=== PATIENT | female | born 1930 | race Caucasian/White ===

== ENCOUNTER 2018-09-07 02:55 | Inpatient (IN) | payer MEDICARE ==
[~2018-09-07] VITALS: Ht 152.4 cm; Wt 57.9 kg
[2018-09-07 03:40] LABS: BASOPHILS ABSOLUTE AUTO 0.07 K/mm3 (0.00-0.23); BASOPHILS PERCENT AUTO 1 % (0-2); EOSINOPHILS ABSOLUTE AUTO 0.59 K/mm3 (0.00-0.68); EOSINOPHILS PERCENT AUTO 4 % (0-6); Hematocrit 38.7 % (33.0-51.0); Hemoglobin 12.4 g/dL (11.5-16.0); IMMATURE GRAN ABSOLUTE AUTO 0.19 K/mm3 (0.00-0.10); IMMATURE GRAN PERCENT AUTO 1 % (0-1); LYMPHOCYTES ABSOLUTE AUTO 1.65 K/mm3 (0.84-5.20); LYMPHOCYTES PERCENT AUTO 12 % (21-46); MONOCYTES ABSOLUTE AUTO 1.35 K/mm3 (0.16-1.47); MONOCYTES PERCENT AUTO 10 % (4-13); Mean Corpuscular HGB 29.5 pg (26.0-34.0); Mean Corpuscular Volume 92 fL (80-100); Mean Platelet Volume 8.8 fL (9.1-12.4); NEUTROPHILS ABSOLUTE AUTO 9.62 K/mm3 (1.96-9.15); NEUTROPHILS PERCENT AUTO 72 % (41-73); Platelet Count 241 K/mm3 (150-400); RDW Coefficient Variation 14.5 % (11.7-14.2); Red Blood Cell Count 4.21 M/mm3 (3.80-5.20); White Blood Cell Count 13.47 K/mm3 (4.00-11.30)
[2018-09-07 03:55] LABS: International Normalized Ratio 1.02; Prothrombin Time Results 10.8 Sec (9.7-11.5)
[2018-09-07 03:59] LABS: Alanine Aminotransfer (ALT/SGP 20 U/L (12-78); Albumin, Blood 3.1 g/dL (3.4-5.0); Albumin/Globulin Ratio 0.9 (0.8-1.8); Alk Phos 66 U/L (50-136); Anion Gap 7 mmol/L (6-16); Aspartate Aminotrans (AST/SGOT 18 U/L (12-37); Bilirubin, Total 0.6 mg/dL (0.1-1.0); Blood Urea Nitrogen 17 mg/dL (8-24); Bun/Creatinine Ratio 24.8 (12.0-20.0); CO2, Blood 28 mmol/L (21-32); Calcium, Blood 7.8 mg/dL (8.5-10.1); Chloride, Blood 99 mmol/L (98-108); Creatinine, Blood 0.69 mg/dL (0.40-1.00); Globulin, Blood 3.6 g/dL (2.2-4.0); Glomerular Filtration Rate >60 (60-); Glucose, Blood 132 mg/dL (70-99); Potassium, Blood 3.4 mmol/L (3.5-5.5); Sodium, Blood 134 mmol/L (136-145); Total Protein, Blood 6.7 g/dL (6.4-8.2); Troponin I 0.099 ng/mL (0.000-0.040)
[2018-09-07 04:24] LABS: Source, Urine Catheter
[2018-09-07 04:26] LABS: Bilirubin, Urine Neg (Neg); Blood, Urine 4+ (Neg); Glucose Qualitative, Urine Neg (Neg); Ketones, Urine 1+ (Neg); Leukocyte Esterase, Urine 1+ (Neg); Nitrite, Urine Neg (Neg); Protein, Urine 2+ (Neg); Urobilinogen, Urine NORM (Normal)
[2018-09-07] MEDS ORDERED: Aspir-Low81 MG PO (04:27)
[2018-09-07] MEDS ORDERED: HYDCHL12.5 PO (04:27)
[2018-09-07] MEDS ORDERED: VIACTIV SOFT C1 EAC1 PO (04:28)
[2018-09-07] MEDS ORDERED: PRED10 PO (04:28)
[2018-09-07 04:32] LABS: Appearance, Urine Hazy (Clear); Color, Urine Pale Yellow (P-Yellow)
[2018-09-07 04:39] LABS: Bacteria Many /hpf; Squamous Epithelial Cells Few /hpf (Few)
--- NOTE | 2018-09-07 16:59 | NUR ---
SHIFT SUMMARY PT HAS DONE WELL SINCE ARRIVAL TO UNIT. DENIES PAIN, HAS BEEN SLEEPING WELL. ATTENDS IN PLACE. IVF RUNNING PER EMAR. TROPONING TRENDING DOWN-1.27. VSS.
[2018-09-08 05:05] LABS: BASOPHILS ABSOLUTE AUTO 0.01 K/mm3 (0.00-0.23); BASOPHILS PERCENT AUTO 0 % (0-2); EOSINOPHILS PERCENT AUTO 0 % (0-6); Hematocrit 34.7 % (33.0-51.0); Hemoglobin 11.1 g/dL (11.5-16.0); IMMATURE GRAN ABSOLUTE AUTO 0.11 K/mm3 (0.00-0.10); IMMATURE GRAN PERCENT AUTO 1 % (0-1); LYMPHOCYTES ABSOLUTE AUTO 0.88 K/mm3 (0.84-5.20); LYMPHOCYTES PERCENT AUTO 7 % (21-46); MONOCYTES ABSOLUTE AUTO 1.12 K/mm3 (0.16-1.47); MONOCYTES PERCENT AUTO 9 % (4-13); Mean Corpuscular HGB 28.8 pg (26.0-34.0); Mean Corpuscular Volume 90 fL (80-100); NEUTROPHILS ABSOLUTE AUTO 10.99 K/mm3 (1.96-9.15); NEUTROPHILS PERCENT AUTO 84 % (41-73); Platelet Count 227 K/mm3 (150-400); RDW Coefficient Variation 14.8 % (11.7-14.2); RDW Standard Deviation 48.7 fL (35.1-46.3); Red Blood Cell Count 3.85 M/mm3 (3.80-5.20); White Blood Cell Count 13.11 K/mm3 (4.00-11.30)
[2018-09-08 05:28] LABS: Alanine Aminotransfer (ALT/SGP 18 U/L (12-78); Albumin, Blood 2.6 g/dL (3.4-5.0); Albumin/Globulin Ratio 0.8 (0.8-1.8); Alk Phos 53 U/L (50-136); Anion Gap 6 mmol/L (6-16); Aspartate Aminotrans (AST/SGOT 37 U/L (12-37); Bilirubin, Total 0.5 mg/dL (0.1-1.0); Blood Urea Nitrogen 19 mg/dL (8-24); Bun/Creatinine Ratio 26.6 (12.0-20.0); CO2, Blood 25 mmol/L (21-32); Calcium, Blood 7.9 mg/dL (8.5-10.1); Chloride, Blood 106 mmol/L (98-108); Creatinine, Blood 0.71 mg/dL (0.40-1.00); Globulin, Blood 3.2 g/dL (2.2-4.0); Glomerular Filtration Rate >60 (60-); Glucose, Blood 110 mg/dL (70-99); Potassium, Blood 4.4 mmol/L (3.5-5.5); Sodium, Blood 137 mmol/L (136-145); Total Protein, Blood 5.8 g/dL (6.4-8.2)
--- NOTE | 2018-09-08 06:55 | NUR ---
RECVD REPORT FROM PREVIOUS SHIFT SHYAM SAENZ, SNEHA AWAKE IN BED, A/0 X 4, PLEASANT/COOPERATIVE, DENIES PAIN OR SOB. BED IN LOWEST POSITION, BEDRAILS UP, CALL LIGHT WITHIN REACH
--- NOTE | 2018-09-08 07:35 | NUR ---
SUMMARY NO ACUTE CHANEGS. PT REMAINS A&O X4. PT DENIES PAIN. LUNGS ARE COARSE W/WHEEZES. PT IS ON ROOM AIR, DENIES SOB/PAIN. NSR PER SECURITY COMPLIANCE SPECIALIST. ATTENDS CHANGED PRN. PT TO XRAY THIS AM. REPORT GIVEN TO DAY RN. CALL LIGHT IN REACH.
--- NOTE | 2018-09-08 18:11 | NUR ---
SHIFT SUMMARY: VSS, NO ACUTE CHANGES, PT UP TO CHAIR FOR LUNCH AND DINNER. PT DEVELOPED ECZEMA RASH WHICH SHE STATES IS AN ONGOING ISSUE FOR HER. RECEIVED ORDERS FROM PROVIDER FOR TOPICAL CREAM TO BE APPLIED TID. PT RECEIVED IV ABX X 2 PER JUL. PT REMAINED A/O X 4, PLEASANT/COOPERATIVE. INCONTINENCE VOIDS X 3 THIS SHIFT, ONE CONTINENT VOID. PT TOLERATED PO INTAKE, NO N/V. PT'S VISITED >3 HRS THIS SHIFT
[2018-09-09 01:44] LABS: Adenovirus Not Detected (NOT DETECT); Bordetella pertussis Not Detected (NOT DETECT); Chlamydophila pneumoniae Not Detected (NOT DETECT); Coronavirus 229E Not Detected (NOT DETECT); Coronavirus HKU1 Not Detected (NOT DETECT); Coronavirus NL63 Not Detected (NOT DETECT); Coronavirus OC43 Not Detected (NOT DETECT); Human Metapneumovirus Detected (NOT DETECT); Human Rhinovirus/Enterovirus Not Detected (NOT DETECT); Influenza A Not Detected (NOT DETECT); Influenza A/2009-H1 Not Detected (NOT DETECT); Influenza A/H1 Not Detected (NOT DETECT); Influenza A/H3 Not Detected (NOT DETECT); Influenza B Not Detected (NOT DETECT); Mycoplasma pneumoniae Not Detected (NOT DETECT); Parainfluenza Virus 1 Not Detected (NOT DETECT); Parainfluenza Virus 2 Not Detected (NOT DETECT); Parainfluenza Virus 3 Not Detected (NOT DETECT); Parainfluenza Virus 4 Not Detected (NOT DETECT); Respiratory Syncytial Virus Not Detected (NOT DETECT)
[2018-09-09 04:45] LABS: BASOPHILS ABSOLUTE AUTO 0.02 K/mm3 (0.00-0.23); BASOPHILS PERCENT AUTO 0 % (0-2); EOSINOPHILS ABSOLUTE AUTO 0.15 K/mm3 (0.00-0.68); EOSINOPHILS PERCENT AUTO 1 % (0-6); Hemoglobin 11.2 g/dL (11.5-16.0); IMMATURE GRAN PERCENT AUTO 1 % (0-1); LYMPHOCYTES ABSOLUTE AUTO 1.53 K/mm3 (0.84-5.20); LYMPHOCYTES PERCENT AUTO 11 % (21-46); MONOCYTES ABSOLUTE AUTO 1.26 K/mm3 (0.16-1.47); MONOCYTES PERCENT AUTO 9 % (4-13); Mean Corpuscular HGB 29.3 pg (26.0-34.0); Mean Corpuscular Volume 92 fL (80-100); NEUTROPHILS ABSOLUTE AUTO 10.95 K/mm3 (1.96-9.15); NEUTROPHILS PERCENT AUTO 78 % (41-73); Platelet Count 250 K/mm3 (150-400); RDW Coefficient Variation 14.9 % (11.7-14.2); RDW Standard Deviation 50.2 fL (35.1-46.3); Red Blood Cell Count 3.82 M/mm3 (3.80-5.20); White Blood Cell Count 14.01 K/mm3 (4.00-11.30)
[2018-09-09 04:59] LABS: Albumin, Blood 2.6 g/dL (3.4-5.0); Anion Gap 5 mmol/L (6-16); Blood Urea Nitrogen 14 mg/dL (8-24); Bun/Creatinine Ratio 19.9 (12.0-20.0); CO2, Blood 26 mmol/L (21-32); Calcium, Blood 8.1 mg/dL (8.5-10.1); Chloride, Blood 106 mmol/L (98-108); Glomerular Filtration Rate >60 (60-); Glucose, Blood 82 mg/dL (70-99); Phosphorus, Blood 3.1 mg/dL (2.5-4.9); Potassium, Blood 4.1 mmol/L (3.5-5.5); Sodium, Blood 137 mmol/L (136-145)
--- NOTE | 2018-09-09 07:59 | NUR ---
SUMMARY NO ACUTE CHANGES NOTED. PT WAS GIVEN 10 MG HYDRALIZINE THIS AM DUE TO HTN. BP DECREASED. PT ASYMPTOMATIC. PT IS A STAND BY ASSIST TO THE BATHROOM. CALL LIGHT LIGHT IN REACH, PT CALLS APPROPRIATLY
--- NOTE | 2018-09-09 18:47 | NUR ---
SHIFT SUMMARY PT HAS DONE WELL TODAY DESPITE FEELING FATIGUED. WHEEZY AND COURSE T/O SHIFT BUT IMPROVING FAR MOBILIZATION.
--- NOTE | 2018-09-10 04:03 | NUR ---
SUMMARY PT REPORTS BREATHING EASIER SINCE ADMIT. STILL WEAK, BUT IS IMPULSIVE FEE;ING IMPROVED AND NEEDS REMINDING TO CALL FOR ASSIST OOB. BED ALARM LEFT ON FOR SAFETY. WALKS WITH SBA AND WALKER.
[2018-09-10 05:17] LABS: BASOPHILS ABSOLUTE AUTO 0.03 K/mm3 (0.00-0.23); BASOPHILS PERCENT AUTO 0 % (0-2); EOSINOPHILS ABSOLUTE AUTO 0.08 K/mm3 (0.00-0.68); EOSINOPHILS PERCENT AUTO 1 % (0-6); Hematocrit 33.1 % (33.0-51.0); Hemoglobin 10.6 g/dL (11.5-16.0); IMMATURE GRAN ABSOLUTE AUTO 0.07 K/mm3 (0.00-0.10); IMMATURE GRAN PERCENT AUTO 1 % (0-1); LYMPHOCYTES PERCENT AUTO 18 % (21-46); MONOCYTES ABSOLUTE AUTO 0.78 K/mm3 (0.16-1.47); MONOCYTES PERCENT AUTO 10 % (4-13); Mean Corpuscular HGB 29.4 pg (26.0-34.0); Mean Corpuscular Volume 92 fL (80-100); Mean Platelet Volume 9.1 fL (9.1-12.4); NEUTROPHILS ABSOLUTE AUTO 5.73 K/mm3 (1.96-9.15); NEUTROPHILS PERCENT AUTO 70 % (41-73); Platelet Count 240 K/mm3 (150-400); RDW Coefficient Variation 14.9 % (11.7-14.2); RDW Standard Deviation 50.2 fL (35.1-46.3); White Blood Cell Count 8.19 K/mm3 (4.00-11.30)
[2018-09-10 05:55] LABS: Alanine Aminotransfer (ALT/SGP 21 U/L (12-78); Albumin, Blood 2.4 g/dL (3.4-5.0); Albumin/Globulin Ratio 0.7 (0.8-1.8); Alk Phos 47 U/L (50-136); Anion Gap 8 mmol/L (6-16); Aspartate Aminotrans (AST/SGOT 27 U/L (12-37); Bilirubin, Total 0.6 mg/dL (0.1-1.0); Blood Urea Nitrogen 13 mg/dL (8-24); Bun/Creatinine Ratio 19.1 (12.0-20.0); CO2, Blood 27 mmol/L (21-32); Calcium, Blood 8.1 mg/dL (8.5-10.1); Chloride, Blood 104 mmol/L (98-108); Creatinine, Blood 0.68 mg/dL (0.40-1.00); Globulin, Blood 3.4 g/dL (2.2-4.0); Glomerular Filtration Rate >60 (60-); Glucose, Blood 106 mg/dL (70-99); Potassium, Blood 3.7 mmol/L (3.5-5.5); Sodium, Blood 139 mmol/L (136-145); Total Protein, Blood 5.8 g/dL (6.4-8.2); Troponin I 0.304 ng/mL (0.000-0.040)
--- NOTE | 2018-09-10 12:24 | NUR ---
REPORT TO Myriam DONAHUE AT THIS TIME.
--- NOTE | 2018-09-10 12:44 | NUR ---
ASSUMED CARE OF PATIENT AT THIS TIME. SPOUSE VISITING AT BEDSIDE, DENIES NEEDS.
--- NOTE | 2018-09-10 17:37 | NUR ---
PT HAS BEEN STABLE SINCE THIS RN ASSUMED CARE. PT SBA OOB TO BATHROOM AND CHAIR. SITTING IN CHAIR FOR ALL MEALS. WALKER USED NEEDED. PT PETERSON DIET. VOIDING WELL. NO BM THIS SHIFT, PT NEEDS GI PANEL COLLECTED WHEN ABLE TO GET SPECIMEN. PT DENIES SOB, SATS STABLE ON RA. PRODUCTIVE COUGH WITH SMALL AMT YELLOW SPUTUM. HYDROCORTISONE CREAM NEEDED FOR RASH/ITCHING. PLAN TO DC HOME WITH SPOUSE IN 1-2 DAYS. PT USES CALL LIGHT APPROPRIATELY NEEDED.
--- NOTE | 2018-09-11 06:53 | NUR ---
SUMMARY PT RESP STATUS IMPROVING.MARCELINO BACK FOR URINE CX. PT AMBULATION IS GETTING STRONGER.PT HOPING TO GO HOME IN NEXT DAY OR 2.
--- NOTE | 2018-09-11 07:55 | NUR ---
ELEVATED BP PT'S BP 191/90. METOPROLOL DOSE GIVEN EARLY. PT IS ASYMPTOMATIC AT THIS TIME. WILL RE-ASSESS BP IN APPROXIMATELY 1 HOUR.
[2018-09-11 10:47] LABS: Adenovirus F 40/41 Not Detected (NOT DETECT); Campylobacter Sp Not Detected (NOT DETECT); Cryptosporidium Not Detected (NOT DETECT); Cyclospora Cayetanensis Not Detected (NOT DETECT); E. Coli O157 Not Detected (NOT DETECT); Entamoeba Histolytica Not Detected (NOT DETECT); Enteroaggregative E. coli-EAEC Not Detected (NOT DETECT); Enteropathogenic E. coli-EPEC Not Detected (NOT DETECT); Enterotoxigenic E. coli-ETEC Not Detected (NOT DETECT); Giardia Lamblia Not Detected (NOT DETECT); Plesiomonas Shigelloides Not Detected (NOT DETECT); Salmonella Sp Not Detected (NOT DETECT); Shiga Toxin-prod E. coli-STEC Not Detected (NOT DETECT); Shigella/Enteroin E. coli-EIEC Not Detected (NOT DETECT); Vibrio Cholerae Not Detected (NOT DETECT); Vibrio Sp Not Detected (NOT DETECT); Yersinia Enterocolitica Not Detected (NOT DETECT)
[2018-09-11 10:48] LABS: Astrovirus Not Detected (NOT DETECT); Norovirus GI/GII Not Detected (NOT DETECT); Rotavirus A Not Detected (NOT DETECT); Sapovirus Not Detected (NOT DETECT)
--- NOTE | 2018-09-11 18:30 | NUR ---
SHIFT SUMMARY PT IS A 1 ASSIST WHEN OOB. PLAN FOR POSSIBLE DISCHARGE HOME TOMORROW. WILL MONITOR UNTIL REPORT TO ONCOMING RN.
--- NOTE | 2018-09-12 04:48 | NUR ---
SHIFT SUMMARY PT A&O X4 T/O SHIFT. LS COARSE BILAT, RA, PT DENIES SOB. UP TO TOILET SEVERAL TIMES; UP IN MELLO X1 WITH FWW AND SBA, TOLERATED WELL. NO ACUTE CHANGES. CALL LIGHT IN REACH; PT DEMONSTRATES USE. WCTM UNTIL REPORT TO DAY SHIFT RN.
[2018-09-12 04:53] LABS: BASOPHILS ABSOLUTE AUTO 0.05 K/mm3 (0.00-0.23); BASOPHILS PERCENT AUTO 1 % (0-2); EOSINOPHILS ABSOLUTE AUTO 0.25 K/mm3 (0.00-0.68); EOSINOPHILS PERCENT AUTO 3 % (0-6); Hematocrit 33.6 % (33.0-51.0); Hemoglobin 10.5 g/dL (11.5-16.0); IMMATURE GRAN ABSOLUTE AUTO 0.26 K/mm3 (0.00-0.10); IMMATURE GRAN PERCENT AUTO 3 % (0-1); LYMPHOCYTES ABSOLUTE AUTO 1.89 K/mm3 (0.84-5.20); LYMPHOCYTES PERCENT AUTO 21 % (21-46); MONOCYTES ABSOLUTE AUTO 0.82 K/mm3 (0.16-1.47); MONOCYTES PERCENT AUTO 9 % (4-13); Mean Corpuscular HGB 29.2 pg (26.0-34.0); Mean Corpuscular HGB Conc 31.3 g/dL (31.5-36.5); Mean Corpuscular Volume 93 fL (80-100); NEUTROPHILS ABSOLUTE AUTO 5.71 K/mm3 (1.96-9.15); NEUTROPHILS PERCENT AUTO 64 % (41-73); Platelet Count 268 K/mm3 (150-400); RDW Coefficient Variation 14.7 % (11.7-14.2); RDW Standard Deviation 50.8 fL (35.1-46.3); White Blood Cell Count 8.98 K/mm3 (4.00-11.30)
[2018-09-12 05:17] LABS: Albumin, Blood 2.6 g/dL (3.4-5.0); Anion Gap 6 mmol/L (6-16); Blood Urea Nitrogen 19 mg/dL (8-24); Bun/Creatinine Ratio 31.1 (12.0-20.0); CO2, Blood 28 mmol/L (21-32); Calcium, Blood 8.8 mg/dL (8.5-10.1); Chloride, Blood 104 mmol/L (98-108); Creatinine, Blood 0.61 mg/dL (0.40-1.00); Glomerular Filtration Rate >60 (60-); Glucose, Blood 102 mg/dL (70-99); Phosphorus, Blood 4.1 mg/dL (2.5-4.9); Potassium, Blood 4.3 mmol/L (3.5-5.5); Sodium, Blood 138 mmol/L (136-145)
[2018-09-12] MEDS ORDERED: AZIT250 PO (10:51)
[2018-09-12] MEDS ORDERED: ATOR40TA PO (10:51)
[2018-09-12] MEDS ORDERED: CEFP200 PO (10:52)
[2018-09-12] MEDS ORDERED: LOSA50 PO (10:52)
[2018-09-12] MEDS ORDERED: METO25ER PO (10:53)
--- NOTE | 2018-09-12 11:20 | NUR ---
PROVIDED PT WITH DISCHARGE INSTRUCTIONS, ANSWERED ALL QUESTIONS, FAXED PRESCRIPTIONS TO [facility] IN [place], DISCONTINUED IV WNL, AWAITING ARRIVAL OF PT'S FOR A RIDE HOME. PT UP IN ROOM GATHERING HER BELONGINGS.
--- NOTE | 2018-09-12 13:30 | NUR ---
PT'S ARRIVED, CHARGE NURSE/HUGO ASSISTED PT OUT TO VEHICLE VIA WHEELCHAIR.
== END 2018-09-12 13:19 | disposition home or self-care (01) | DRG 871 ==
LOC: ER 02:55 → ERHOLD 05:58 → SURS 12:15
PROVIDERS: Emergency Medicine; Family Medicine; Internal Medicine Gastroenterology; ADMIT Family Medicine
DX: A41.89 Other specified sepsis (principal); J12.3 Human metapneumovirus pneumonia; I21.A1 Myocardial infarction type 2; E87.1 Hypo-osmolality and hyponatremia; R65.20 Severe sepsis without septic shock; Z66 Do not resuscitate; E87.6 Hypokalemia; I10 Essential (primary) hypertension; E86.1 Hypovolemia; J44.9 Chronic obstructive pulmonary disease, unspecified
CPT/HCPCS: 36415; 71046; 80053; 80069; 81001; 83605; 83880; 84145; 84484; 85025; 85610; 85730; 87040; 87070; 87077; 87086; 87186; 87205; 87486; 87507; 87581; 87633; 87798; 93005; 93010; 93306; 94640; 94760; 96365; 96375; 99285-25; J0360; J0456; J0696; J1650; J2405; J2930; J3480; J7050

== ENCOUNTER 2018-11-08 10:11 | Emergency (ER) | payer MEDICARE ==
[~2018-11-08] VITALS: Ht 147.3 cm; Wt 57.1 kg
[~2018-11-08 10:11] MED LIST: ATOR40TA PO; AZIT250 PO; Aspir-Low81 MG PO; CEFP200 PO; HYDCHL12.5 PO; LOSA50 PO; METO25ER PO; PRED10 PO; VIACTIV SOFT C1 EAC1 PO
[2018-11-08] MEDS ORDERED: AMLO5 PO (10:31)
[2018-11-08] MEDS ORDERED: HYDR1TAB94 PO (12:48)
== END 2018-11-08 13:17 | disposition home or self-care (01) ==
LOC: ER 10:11
DX: S22.089A Unspecified fracture of T11-T12 vertebra, initial encounter for closed fracture (principal); M54.5 Low back pain; G89.29 Other chronic pain; W19.XXXA Unspecified fall, initial encounter; Z88.0 Allergy status to penicillin; Z88.8 Allergy status to other drugs, medicaments and biological substances; Z88.5 Allergy status to narcotic agent; Z88.1 Allergy status to other antibiotic agents; Z79.82 Long term (current) use of aspirin; Z79.899 Other long term (current) drug therapy; I10 Essential (primary) hypertension; I25.2 Old myocardial infarction
CPT/HCPCS: 72070; 72100; 72125; 99284-25; A9270-GY

== ENCOUNTER 2018-11-26 16:41 | Observation (INO) | payer MEDICARE ==
[~2018-11-26] VITALS: Ht 162.6 cm; Wt 57.1 kg
[~2018-11-26 16:41] MED LIST changes: +AMLO5 PO; +HYDR1TAB94 PO
[2018-11-26 18:29] LABS: Source, Urine Clean Catch
[2018-11-26 18:32] LABS: Bilirubin, Urine Neg (Neg); Blood, Urine 3+ (Neg); Glucose Qualitative, Urine Neg (Neg); Ketones, Urine 2+ (Neg); Leukocyte Esterase, Urine 1+ (Neg); Nitrite, Urine Neg (Neg); Protein, Urine Neg (Neg); Specific Gravity, Urine 1.015 (1.003-1.022); Urobilinogen, Urine NORM (Normal)
[2018-11-26 18:36] LABS: BASOPHILS ABSOLUTE AUTO 0.07 K/mm3 (0.00-0.23); BASOPHILS PERCENT AUTO 1 % (0-2); EOSINOPHILS ABSOLUTE AUTO 0.24 K/mm3 (0.00-0.68); EOSINOPHILS PERCENT AUTO 3 % (0-6); Hematocrit 40.3 % (33.0-51.0); Hemoglobin 13.3 g/dL (11.5-16.0); IMMATURE GRAN ABSOLUTE AUTO 0.04 K/mm3 (0.00-0.10); IMMATURE GRAN PERCENT AUTO 0 % (0-1); LYMPHOCYTES ABSOLUTE AUTO 2.41 K/mm3 (0.84-5.20); LYMPHOCYTES PERCENT AUTO 26 % (21-46); MONOCYTES PERCENT AUTO 10 % (4-13); Mean Corpuscular HGB 30.7 pg (26.0-34.0); Mean Corpuscular Volume 93 fL (80-100); NEUTROPHILS ABSOLUTE AUTO 5.71 K/mm3 (1.96-9.15); NEUTROPHILS PERCENT AUTO 61 % (41-73); RDW Standard Deviation 52.1 fL (35.1-46.3); Red Blood Cell Count 4.33 M/mm3 (3.80-5.20); White Blood Cell Count 9.37 K/mm3 (4.00-11.30)
[2018-11-26 18:55] LABS: Appearance, Urine Clear (Clear); Color, Urine Yellow (P-Yellow)
[2018-11-26 18:57] LABS: Bacteria Few /hpf; Calcium Oxalate Crystals Few /hpf; Squamous Epithelial Cells Few /hpf (Few)
[2018-11-26 18:58] LABS: Mean Platelet Volume 8.8 fL (9.1-12.4); Platelet Count 310 K/mm3 (150-400)
[2018-11-26 19:05] LABS: Alanine Aminotransfer (ALT/SGP 14 U/L (12-78); Albumin, Blood 3.6 g/dL (3.4-5.0); Albumin/Globulin Ratio 0.8 (0.8-1.8); Alk Phos 137 U/L (50-136); Anion Gap 8 mmol/L (6-16); Aspartate Aminotrans (AST/SGOT 19 U/L (12-37); Bilirubin, Total 0.8 mg/dL (0.1-1.0); Blood Urea Nitrogen 21 mg/dL (8-24); Bun/Creatinine Ratio 32.8 (12.0-20.0); CO2, Blood 25 mmol/L (21-32); Calcium, Blood 9.1 mg/dL (8.5-10.1); Chloride, Blood 105 mmol/L (98-108); Creatinine, Blood 0.64 mg/dL (0.40-1.00); Globulin, Blood 4.3 g/dL (2.2-4.0); Glomerular Filtration Rate >60 (60-); Glucose, Blood 96 mg/dL (70-99); Potassium, Blood 3.8 mmol/L (3.5-5.5); Sodium, Blood 138 mmol/L (136-145); Total Protein, Blood 7.9 g/dL (6.4-8.2)
[2018-11-27 04:52] LABS: Hematocrit 36.6 % (33.0-51.0); Hemoglobin 11.8 g/dL (11.5-16.0); Mean Corpuscular HGB 29.4 pg (26.0-34.0); Mean Corpuscular HGB Conc 32.2 g/dL (31.5-36.5); Mean Corpuscular Volume 91 fL (80-100); Mean Platelet Volume 8.5 fL (9.1-12.4); Platelet Count 301 K/mm3 (150-400); RDW Coefficient Variation 15.1 % (11.7-14.2); RDW Standard Deviation 50.8 fL (35.1-46.3); Red Blood Cell Count 4.01 M/mm3 (3.80-5.20); White Blood Cell Count 8.41 K/mm3 (4.00-11.30)
[2018-11-27 05:12] LABS: Albumin/Globulin Ratio 0.8 (0.8-1.8); Bilirubin, Total 0.6 mg/dL (0.1-1.0); Bun/Creatinine Ratio 27.6 (12.0-20.0); Calcium, Blood 8.7 mg/dL (8.5-10.1); Creatinine, Blood 0.98 mg/dL (0.40-1.00); Globulin, Blood 3.7 g/dL (2.2-4.0); Potassium, Blood 4.2 mmol/L (3.5-5.5); Total Protein, Blood 6.7 g/dL (6.4-8.2)
--- NOTE | 2018-11-27 06:26 | NUR ---
PT NEW ADMIT THIS SHIFT FOR BACK PAIN R/T T-12 COMPRESSION FX. PT VSS SINCE ARRIVING TO FLOOR. PT REP PAIN LESS SEVERE SINCE ADMIT, MED FOR PAIN X1 AND REPOSITIONED FOR COMFORT W/REP RELIEF. PT USING CALL LIGHT FOR ASSISTANCE. AWAITING PT/OT EVAL. WILL CONT TO MONITOR UNTIL REP GIVEN TO ONCOMING RN.
--- NOTE | 2018-11-27 07:55 | NUR ---
pt awake reports pain 7/10 to her back stated she was unable to move at home and pain was unbearable stated the meds also made her sicek to her stomach but the toradol has not we also will ask dr for tramadol
--- NOTE | 2018-11-27 10:32 | NUR ---
dr winter by to see pt po tramadol started will trial vs po dilaudid if effective will use instead
--- NOTE | 2018-11-27 13:00 | NUR ---
pt done eating lunch her iv was leaking removed and placed a new iv
--- NOTE | 2018-11-27 14:25 | NUR ---
po dilaudid given will trial when pt was working with ot she had some nausea zofran given this will also premedicate for if she has nausea with the pain meds
--- NOTE | 2018-11-28 08:18 | NUR ---
SUMMARY: NO ACUTE CHANGES THIS SHIFT. PAIN WELL CONTROLLED WITH IV TORDAL AND PO TRAMADOL X1 THIS SHIFT; NO NAUSEA.
--- NOTE | 2018-11-28 18:23 | NUR ---
SUMMARY PATIENT REPORTS CURRENT BACK AND PELVIS PAIN IS 4-5/10. PATIENT DECLINES PAIN MEDS AT THIS TIME. VISITING WITH HER AT THIS TIME. PATIENT JASE QUIROGA ASSIST WITH WALKER. EPISODE OF NAUSEA WHICH RESOLVED AFTER ZOFRAN
--- NOTE | 2018-11-29 08:08 | NUR ---
PT HAD NO ACUTE CHANGES T/O NIGHT; VSS. PAIN MGD W/TRAMADOL AND IBUPROFEN W/REP RELIEF. MEDS GIVEN W/CRACKERS, PT HAD NO C/O N/V. PT AMB W/FWW+SBA, REP PAIN INCREASES TO LLE W/MVMT. PT USING CALL LIGHT FOR ASSISTANCE, REP GIVEN TO DAY RN.
--- NOTE | 2018-11-29 18:53 | NUR ---
SUMMARY: NO ACUTE CHANGE TODAY. PT IS A/O, VSS. OBSERVATION PT AT THIS TIME. PT MEDICATED FOR BACK PAIN X1 WITH TRAMADOL. DANGLED ON BEDSIDE FOR EACH MEAL TODAY, REFUSED UP TO CHAIR. CSM INTACT. HAS DENIED N/V. NO SAFETY CONCERNS AT THIS TIME. WILL CTM AND REPORT TO DAXA HOWE.
--- NOTE | 2018-11-30 05:23 | NUR ---
PT HAD NO ACUTE CHANGES T/O NIGHT; VSS. PT MED FOR PAIN X2 W/REP RELIEF. PT REP PAIN IN BACK AND DOWN LLE. PT AMB W/FWW+SBA, PETERSON WELL. PT USING CALL LIGHT FOR ASSISTANCE, WILL CONT TO MONITOR UNTIL REP GIVEN TO ONCOMING RN.
[2018-11-30] MEDS ORDERED: LOSA25 PO (09:20)
[2018-11-30] MEDS ORDERED: IBUP600 PO (09:23)
[2018-11-30] MEDS ORDERED: METO50ER PO (09:24)
[2018-11-30] MEDS ORDERED: TRAM50 PO (09:25)
--- NOTE | 2018-11-30 10:18 | NUR ---
DISCHARGE PT DISCHARGED HOME FROM UNIT AT APROX 1015. PT GIVEN WRITTEN AND VERBAL DISCHARGE INSTRUCTIONS AND VERBALIZED UNDERSTANDING OF THESE INSTRUCTIONS. WRITTEN RX FROM TRAMADOL GIVEN TO PT, NEW PERSCRIPTIONS CALLED TO [facility]AT[facility]. WHEELCHAIR ASSIST TO CAR.
== END 2018-11-30 10:12 | disposition home health service (06) ==
LOC: ER 16:41 → SURS 16:42
PROVIDERS: Emergency Medicine; ADMIT Internal Medicine
DX: S22.089A Unspecified fracture of T11-T12 vertebra, initial encounter for closed fracture (principal); I10 Essential (primary) hypertension; Z79.82 Long term (current) use of aspirin; Z88.8 Allergy status to other drugs, medicaments and biological substances; Z88.0 Allergy status to penicillin; Z88.5 Allergy status to narcotic agent; Z88.1 Allergy status to other antibiotic agents; W19.XXXA Unspecified fall, initial encounter
CPT/HCPCS: 36415; 74176; 80053; 81001; 85025; 85027; 87086; 96372; 96374; 96375; 96376; 97110; 97116; 97161; 97165; 97530; 97535; 99285-25; A9270-GY; G0378; J1650; J1885; J2270; J2405; J2550; J7030